=== PATIENT | female | born 1960 | race African-American/Black ===

== ENCOUNTER 2017-10-18 06:39 | Outpatient (CLI) | payer MEDICAID ==
[2017-10-18] VITALS (17 sets, daily range): BP systolic 96–134; BP diastolic 54–97; PULSE 74–90; TEMP 97.6
[~2017-10-18] VITALS: Ht 165.1 cm; Wt 79.3 kg
[~2017-10-18 06:39] MED LIST: ALBUTEROL S0.4 MG/ML PO; CLARITIN 1010 MG/TAB PO; HCTZ12.5TAB PO; INDERAL40 MG PO; LIPITOR 80MG80 MG PO; RT SPIRIVA18 MCG IH; SYNTHROID0.05 MG/TA PO; SYNTHROID0.2 MG/TAB PO
[2017-10-18] MEDS ORDERED: PROAIR HFA0.09 MG/AC IH (06:52)
[2017-10-18] MEDS ORDERED: ZESTORETIC 12.51 TAB PO (06:54)
[2017-10-18] MEDS ORDERED: ZYRTEC 10MG10 MG PO (06:55)
[2017-10-18] MEDS ORDERED: LIPITOR 40MG TA40 MG PO (06:56)
[2017-10-18] MEDS ORDERED: LOPID 600M600 MG/TAB PO (06:57)
[2017-10-18] MEDS ORDERED: PRILOTC PO (06:58)
== END 2017-10-18 13:27 | disposition home or self-care (01) ==
LOC: COL.RAD 06:39
DX: C34.12 Malignant neoplasm of upper lobe, left bronchus or lung (principal); R91.8 Other nonspecific abnormal finding of lung field; I10 Essential (primary) hypertension; J44.9 Chronic obstructive pulmonary disease, unspecified
CPT/HCPCS: 27584

== ENCOUNTER → 2018-05-04 | Outpatient (CLI) | payer MEDICAID ==
[~2018-05-04] MED LIST changes: +LIPITOR 40MG TA40 MG PO; +LOPID 600M600 MG/TAB PO; +PRILOTC PO; +PROAIR HFA0.09 MG/AC IH; +ZESTORETIC 12.51 TAB PO; +ZYRTEC 10MG10 MG PO
== END ==
LOC: COL.RAD 04-29 10:30
DX: C34.12 Malignant neoplasm of upper lobe, left bronchus or lung (principal); I10 Essential (primary) hypertension; J44.9 Chronic obstructive pulmonary disease, unspecified
CPT/HCPCS: A9585

== ENCOUNTER 2018-06-20 08:46 | Outpatient (CLI) | payer MEDICAID ==
[~2018-06-20] VITALS: Ht 165.1 cm; Wt 79.1 kg
[2018-06-20] VITALS (13 sets, daily range): BP systolic 105–147; BP diastolic 74–94; PULSE 78–98
[2018-06-20] MEDS ORDERED: VITAMIN D31000 I1 PO (09:28)
== END 2018-06-20 13:20 | disposition home or self-care (01) ==
LOC: COL.RAD 08:46
DX: C34.12 Malignant neoplasm of upper lobe, left bronchus or lung (principal); I10 Essential (primary) hypertension; J44.9 Chronic obstructive pulmonary disease, unspecified
CPT/HCPCS: 32120

== ENCOUNTER → 2019-04-03 | Outpatient (CLI) | payer MEDICARE ==
[~2019-04-03] MED LIST changes: +VITAMIN D31000 I1 PO
== END ==
LOC: COL.PUL 10:39
DX: J44.9 Chronic obstructive pulmonary disease, unspecified (principal); I08.2 Rheumatic disorders of both aortic and tricuspid valves; I31.3 Pericardial effusion (noninflammatory); Z92.3 Personal history of irradiation; Z92.21 Personal history of antineoplastic chemotherapy; Z87.891 Personal history of nicotine dependence
CPT/HCPCS: J7674

== ENCOUNTER → 2019-06-20 | Outpatient (CLI) | payer MEDICARE, MEDICAID | LOC: COL.RAD 11:40 | DX: I27.20 Pulmonary hypertension, unspecified (principal); J98.4 Other disorders of lung | CPT/HCPCS: A9540; A9567 ==

== ENCOUNTER 2019-10-09 09:41 | Inpatient (IN) | payer MEDICARE, MEDICAID ==
[~2019-10-09] VITALS: Ht 160 cm; Wt 75.3 kg
[~2019-10-09 09:41] MED LIST changes: +INDERAL LA 80MG80 MG PO; -INDERAL40 MG PO; +SPIRIVA RE2.5 MCG/Ac IH; +ZESTORETIC 12.51 TA1 PO; -ZESTORETIC 12.51 TAB PO
[2019-10-24] VITALS (11 sets, daily range): BP systolic 102–178; BP diastolic 60–93; PULSE 77–101; TEMP 97.8–97.9
[2019-10-24 07:16] LABS: HEMOGLOBIN 12.5 g/dl (12.5-16.0); MEAN CELL VOLUME 100 fl (80.0-100.0); MEAN CORPUSCULAR HEMOGLOBIN 34 pg (27.0-31.0); MEAN CORPUSCULAR HGB CONC 34 g/dl (33.0-37.0); MEAN PLATELET VOLUME 9.7 fl (7.4-10.4); PLATELET COUNT 221 K/mm3 (130-400); REDCELL DISTRIBUTION WIDTH-CV 14.8 % (11.5-14.5)
[2019-10-24 07:24] LABS: HEMATOCRIT 36.8 % (37.0-47.0)
--- NOTE | 2019-10-24 07:26 | NUR ---
Patient arrived to [facility] [place] at 0620. History completed with patient. VSS on room air. Breath sounds clear bilaterally to auscultation. Clear S1S2 heart tones heard with regular rate noted. +2 radial pulses bilaterally. PERRLA +2 pupils noted. Denies numbness/tingling/pain. SHe is A+Ox4 and pleasant. Nursing staff notifies JACQUELINE Marques of patient's ETOH history. Nursing staff is unable to obtain IV and patient is taken to PACU for TRANSFER CAR OPERATOR to complete. PO medications given. Patient belonging bag x2 taken to PACU.
[2019-10-24 07:27] LABS: CALCIUM 9.4 mg/dL (8.4-10.2); CREATININE, serum 0.66 (0.52-1.25); POTASSIUM 3.5 mmol/L (3.4-5.0)
--- NOTE | 2019-10-24 12:11 | NUR ---
Patient up from OR, drowsy but arouses to voice and touch. Lap sites x 5 with one larger incision to left quadrant, edges well approximated. Patient on 3L of oxygen via NC. Post op fluids to right forarm. Scales to dependent drainage with small amount of baljit urine present. Dr. Gonzalez aware of decreased urine output.
[2019-10-24] MEDS ORDERED: CLARITIN 1010 MG/TAB PO (13:52)
--- NOTE | 2019-10-24 19:58 | NUR ---
Patient doing well since up from OR. Up to recliner this afternoon. Scales maintained to dependent drainge with clear baljit urine in bag. Denies pain at this time. Tolerating diet without difficulties. Denies further needs at this time. Reported off to restaurant shift supervisor.
--- NOTE | 2019-10-24 23:23 | NUR ---
Pt doing well. Alert and oriented with VSS. Heart and lung sounds normal. 5 lap sites to abdome, CD&I. Bowel sounds aud in all quad. Pt voiding ok. Has not had BM this shift. Has gotten up and ambulating well. Pt denies pain, states she feels good. Resting in bed. Denies needs, call light within reach, will continue to monitor
[2019-10-25 00:19] VITALS: BP 139/65; PULSE 77; TEMP 97.6
--- NOTE | 2019-10-25 03:53 | NUR ---
Pt has had uneventful night. No c/o pain. Slept most of night. Scales to dependent drainage. Call light within reach, will continue to monitor
[2019-10-25 04:26] VITALS: BP 154/79; PULSE 84; TEMP 97.9
--- NOTE | 2019-10-25 04:57 | NUR ---
Scales catheter DC'd per order. No c/o pain. Ambulating well. In room taking bed bath, call light within reach, no needs at this time. Will continue to monitor
--- NOTE | 2019-10-25 08:00 | NUR ---
Patient in bed resting. Alert and oriented x 3. Assessment complete. Patient ambulating independently in room. Denies pain at this time. Has minimal drainage from incision sites. Voiding without difficulties. States she has been passing gas but no BM. Denies further needs at this time.
[2019-10-25 09:22] VITALS: BP 138/93; PULSE 81; TEMP 98.2
[2019-10-25 09:36] LABS: BASO % 0.1 % (0.0-2.0); GRAN # 7.1 (1.4-6.5); GRAN % 81.4 % (42.2-75.2); HEMOGLOBIN 11.5 g/dl (12.5-16.0); LYMPH # 1.2 (1.2-3.4); LYMPH % 13.4 % (20.0-51.0); MEAN CELL VOLUME 102 fl (80.0-100.0); MEAN CORPUSCULAR HEMOGLOBIN 34 pg (27.0-31.0); MEAN CORPUSCULAR HGB CONC 33 g/dl (33.0-37.0); MEAN PLATELET VOLUME 10.5 fl (7.4-10.4); MONO # 0.4 (0.1-0.6); MONO % 4.4 % (1.7-9.3); PLATELET COUNT 189 K/mm3 (130-400); REDCELL DISTRIBUTION WIDTH-CV 14.9 % (11.5-14.5)
[2019-10-25 09:40] LABS: CALCIUM 9.7 mg/dL (8.4-10.2); CREATININE, serum 0.7 (0.52-1.25); MAGNESIUM 1.7 mg/dL (1.6-2.3); POTASSIUM 3.9 mmol/L (3.4-5.0)
[2019-10-25 09:42] LABS: HEMATOCRIT 34.6 % (37.0-47.0)
--- NOTE | 2019-10-25 11:41 | NUR ---
MINAL met with the patient and her fiance, Bartolo Yeh (ph#[phone]), to discuss discharge plan. The patient lives in [place] with her fiance. She reports independence with ADLs and does not have any DME. The patient receive primary care at the [facility] in [place] and she receives her medications at [facility] and through [facility]. She reports no difficulties obtaining her meds. The patient does not have advanced directives completed, but she was interested in obtaining a form for DPOA-HC. MINAL provided. The patient plans to return home with her fiance upon discharge. MINAL then addressed the patient's alcohol use. The patient reports that she has 1-3 mixed alcoholic beverages Wednesday-Wednesday. She states that she has no concerns about her drinking and is not interested in cutting back or quitting at this time. No additional needs at this time.
--- NOTE | 2019-10-25 12:30 | NUR ---
Discharge education provided to patient. Educated on signs and symptoms of infection as well as follow up appointments. Educated on medication safety and all new medications. All questions answered. INT to right forarm discontinued. Patient out by wheelchair with surgical staff and family.
[2019-10-25 12:59] VITALS: BP 145/82; PULSE 75; TEMP 98
--- NOTE | 2019-10-25 13:01 | NUR ---
First visit from the pharmacy tech customer service. No needs right now.
== END 2019-10-25 12:30 | disposition home or self-care (01) | DRG 614 ==
LOC: INPTSU 10-24 06:15 → SURG 10-24 07:45
PROVIDERS: Nurse Anesthetist, Certified Registered; ADMIT Urology
PROC: 07BP4ZZ Excision of Spleen, Percutaneous Endoscopic Approach (ICD-10-PCS; 2019-10-24)
PROC: 8E0W4CZ Robotic Assisted Procedure of Trunk Region, Percutaneous Endoscopic Approach (ICD-10-PCS; 2019-10-24)
PROC: 0GT24ZZ Resection of Left Adrenal Gland, Percutaneous Endoscopic Approach (ICD-10-PCS; principal; 2019-10-24 07:45)
DX: C79.72 Secondary malignant neoplasm of left adrenal gland (principal); C34.92 Malignant neoplasm of unspecified part of left bronchus or lung; Q89.09 Congenital malformations of spleen; Z88.1 Allergy status to other antibiotic agents; Z88.0 Allergy status to penicillin; I10 Essential (primary) hypertension; Z72.89 Other problems related to lifestyle; F41.9 Anxiety disorder, unspecified; J44.9 Chronic obstructive pulmonary disease, unspecified; Z87.891 Personal history of nicotine dependence; E03.9 Hypothyroidism, unspecified; M25.562 Pain in left knee
CPT/HCPCS: 99222; 99231-AI; A4314; A9284; J1100; J1650; J2250; J2370; J2405; J2704; J2795; J3010; J7120